=== PATIENT | female | born 1980 | race Caucasian/White ===

== ENCOUNTER 2017-06-27 12:56 | Emergency (ER) | payer OTHER ==
[~2017-06-27] VITALS: Ht 167.6 cm; Wt 68.0 kg
--- NOTE | 2017-06-27 13:15 | ED PSYCHIATRIC COMPLAINT ---
History of Present Illness General Chief Complaint: Psychiatric Related Complaint Stated Complaint: SIB HIGHWATCH FOR EVAL Source: patient, family Exam Limitations: no limitations Vital Signs & Intake/Output Vital Signs & Intake/Output Vital Signs Date Time Temp Pulse Resp B/P B/P Pulse O2 O2 Flow FiO2 Mean Ox Delivery Rate 06/27 1445 98.0 76 17 108/66 100 Room Air 06/27 1311 97.7 80 16 114/71 98 Room Air Allergies Coded Allergies: No Known Allergies (06/27/17) Reconcile Medications Aripiprazole (Abilify) 15 MG TABLET 1 TAB PO DAILY MENTAL HEALTH (Reported) Bupropion HCl (Wellbutrin XL) 150 MG TAB.ER.24H 1 TAB PO DAILY MENTAL HEALTH (Reported) Escitalopram Oxalate 20 MG TABLET 1 TAB PO DAILY MENTAL HEALTH (Reported) Triage Note: PT WENT TO [facility] AND THEY SENT HER HERE FOR MEDICAL CLEARANCE BECAUSE SHE HAS SUPERFICIAL LACERATIONS TO HER LEFT WRIST. PT DENIES SI/HI BUT STATES SHE HAS HX OF CUTTING AND ONLY DID THIS BECAUSE SHE WAS DRUNK. PT STATES HER LAST DRINK WAS LAST EVENING. PT ADMITS TO DRINKING ONE PINT OF VODKA MIXED WITH WINE EVERY OTHER DAY. PT ALSO AMDITS TO USING COCAINE AND MARIJUANNA. COCAINE ON THE AND MARIJUANNA LAST EVELIN. Triage Nurses Notes Reviewed? yes : No Patient currently breastfeeds: No HPI: Patient went to [facility] for alcohol rehabilitation today. Patient states that she drinks heavily roughly every other day. Patient states that she has gone up to 3 days without drinking in the past. During her intake it is also found that the patient has been cutting recently. Patient was admitted [facility] over the summer for depression. Patient states that she cuts not in a suicide attempt but it just an effort to feel good and she always does when she is drinking. Past History Travel History Traveled to [place] past 21 day No Medical History Any Pertinent Medical History? see below for history Psychiatric: anxiety, depression Surgical History Surgical History: non-contributory Psychosocial History What is your primary language French Tobacco Use: Current Daily Use Daily Tobacco Use Amount/Type: => 5 Cigarettes daily ETOH Use: alcoholic Illicit Drug Use: cocaine, marijuana Family History Hx Contributory? No Review of Systems Review of Systems Constitutional: Reports: no symptoms. EENTM: Reports: no symptoms. Respiratory: Reports: no symptoms. Cardiovascular: Reports: no symptoms. GI: Reports: no symptoms. Genitourinary: Reports: no symptoms. Musculoskeletal: Reports: no symptoms. Skin: Reports: no symptoms. Neurological/Psychological: Reports: see HPI, depressed. Hematologic/Endocrine: Reports: no symptoms. Immunologic/Allergic: Reports: no symptoms. All Other Systems: Reviewed and Negative Physical Exam Physical Exam General Appearance: well developed/nourished, mild distress Head: atraumatic Eyes: Bilateral: PERRL, EOMI. Ears, Nose, Throat: normal pharynx, normal ENT inspection, hearing grossly normal Neck: normal inspection, supple Respiratory: normal breath sounds Cardiovascular: regular rate/rhythm Gastrointestinal: soft, non-tender Extremities: CUTS TO LUE, NOTHING TO SUTURE Neurological/Psychiatric: no motor/sensory deficits, awake, alert, calm, oriented x 3 Appearance/Memory/Insight: appropriate appearance, appropriate insight Behavoir/Eye Contact/Speech: cooperative, normal speech, good eye contact Thoughts/Hallucinations: normal thought pattern, no apparent hallucination Skin: normal color, warm/dry SAD PERSONS Done? CRISIS CONSULT OBTAINED Progress Differential Diagnosis: drug intoxication, drug overdose, drug withdrawal, electrolyte abnormality Plan of Care: Orders Procedure Date/time Status Regular Diet 06/27 D Active CIWA 06/27 1315 Active URINE DRUG SCREEN FOR ER ONLY 06/27 1315 Complete URINALYSIS 06/27 1315 Complete HUMAN BETA HCG SCREEN 06/27 1315 Complete ETHANOL 06/27 1315 Complete COMPREHENSIVE METABOLIC PANEL 06/27 1315 Complete CBC WITHOUT DIFFERENTIAL 06/27 1315 Complete ED CRISIS PSYCH CONSULT 06/27 1315 Active Current Medications Sig/Lorrie Start time Last Medication Dose Stop Time Status Admin Aripiprazole 15 MG DAILY 06/27 1339 UNVr 06/27 (Abilify) 1408 Bupropion HCl 150 MG DAILY 06/27 1339 UNVr 06/27 (Wellbutrin XL) 1408 Escitalopram Oxalate 20 MG DAILY 06/27 1339 UNVr 06/27 (Lexapro) 1408 Laboratory Tests 06/27/17 1540: Urine Opiates Screen < 100.00, Methadone Screen 47, Barbiturate Screen < 60, Ur Phencyclidine Scrn < 6.00, Amphetamines Screen 183, U Benzodiazepines Scrn < 85, Urine Cocaine Screen 157, Urine Cannabis Screen > 80.00 H, Urine Color YEL, Urine Clarity CLEAR, Urine pH 7.0, Ur Specific [place] 1.020, Urine Protein NEG, Urine Ketones NEG, Urine Nitrite NEG, Urine Bilirubin NEG, Urine Urobilinogen 0.2, Ur Leukocyte Esterase NEG, Ur Microscopic EXAM NOT REQUIRED, Urine Hemoglobin NEG, Urine Glucose NEG 06/27/17 1342: Anion Gap 11, Estimated GFR > 60, BUN/Creatinine Ratio 25.7 H, Glucose 108 H, Calcium 10.1, Total Bilirubin 0.6, AST 21, ALT 36, Alkaline Phosphatase 63, Total Protein 7.3, Albumin 4.4, Globulin 2.9, Albumin/Globulin Ratio 1.5, Total Beta HCG NEGATIVE, CBC w Diff NO MAN DIFF REQ, RBC 4.72, MCV 90.4, MCH 31.6 H, RDW 12.6, MPV 7.4, Gran % 65.5, Lymphocytes % 26.3, Monocytes % 6.3, Eosinophils % 1.1, Basophils % 0.8, Absolute Granulocytes 4.8, Absolute Lymphocytes 1.9, Absolute Monocytes 0.5, Absolute Eosinophils 0.1, Absolute Basophils 0.1, PUBS MCHC 35.0, Serum Alcohol < 10.0 Hand-Off Endorsed To: Kuldeep Quintana MD Endorsed Time: 1899 Pending: consult, other (RE-EVAL) Comments: Patient has been seen and evaluated by psychiatry and she is cleared to return to [facility]. Departure Departure Disposition: HOME OR SELF CARE Condition: Stable Clinical Impression Primary Impression: Alcohol dependency Secondary Impressions: Deliberate self-cutting Additional Instructions: GO STRAIGHT TO [facility] RETURN FOR ANY CONCERNS Departure Forms: Customer Survey General Discharge Information
[2017-06-27 13:48] LABS: ABSOLUTE BASOPHIL COUNT 0.1 /CUMM (0.0-0.2); ABSOLUTE EOSINOPHIL COUNT 0.1 /CUMM (0.0-0.7); ABSOLUTE GRANULOCYTE CT 4.8 /CUMM (1.4-6.5); ABSOLUTE LYMPH COUNT 1.9 /CUMM (1.2-3.4); ABSOLUTE MONOCYTE COUNT 0.5 /CUMM (0.10-0.60); BASOPHIL % 0.8 % (0.0-2.0); EOSINOPHIL % 1.1 % (0-5); GRANULOCYTE % 65.5 % (42.2-75.2); HEMATOCRIT 42.7 % (37-47); MEAN CORPUSCULAR HGB 31.6 PG (27.0-31.0); MEAN CORPUSCULAR VOLUME 90.4 FL (81.0-99.0); MEAN PLATELET VOLUME 7.4 FL (7.4-10.4); PLATELET COUNT 254 /CUMM (130-400); RBC DISTRIBUTION WIDTH 12.6 % (11.5-14.5); RED BLOOD CELL CT 4.72 /CUMM (4.20-5.40); WHITE BLOOD CELL COUNT 7.3 /CUMM (4.8-10.8)
[2017-06-27] MEDS ORDERED: WELLBUTRIN XL150 M2 PO (14:49)
[2017-06-27] MEDS ORDERED: ABILIFY15 M1 PO (14:50)
[2017-06-27] MEDS ORDERED: ESCITALOPRAM OX20 MG PO (14:51)
--- NOTE | 2017-06-27 17:41 | ED PSYCH CRISIS CONSULTATION ---
Crisis Consult Basic Assessment Date of Consult: 06/27/17 Chief Complaint: Psychiatric Related Complaint Allergies - Coded Allergies: No Known Allergies (06/27/17) Current Medications - Scheduled Medications Aripiprazole (Abilify) 15 MG TABLET 1 TAB PO DAILY MENTAL HEALTH (Reported) Entered as Reported by Kenneth Mathews on 06/27/17 1450 Bupropion HCl (Wellbutrin XL) 150 MG TAB.ER.24H 1 TAB PO DAILY MENTAL HEALTH (Reported) Entered as Reported by Kenneth Mathews on 06/27/17 1449 Escitalopram Oxalate 20 MG TABLET 1 TAB PO DAILY MENTAL HEALTH (Reported) Entered as Reported by Kenneth Mathews on 06/27/17 1451 Past History Past Medical History Psychiatric: anxiety, depression Past Surgical History Surgical History: non-contributory Departure Disposition Referrals Patient Has No Primary Care Dr (PCP/Family)
[2017-06-27 17:45] VITALS: BP 112/66
--- NOTE | 2017-06-27 19:28 | ED PSYCH CRISIS CONSULTATION ---
Crisis Consult Basic Assessment Date of Consult: 06/27/17 Responsible Person/Accompanied By: Brought in by / from the [facility] Insurance Authorization: Insurance #1: Insurance name: KHUSHI Phone number: Policy number: [id number] Group number: Authorization number: ED Provider: Patient's ED Provider: Vance LEACH,Octavio Vasquez Primary Care Physician: Patient's PCP: Patient Has No Primary Care Dr PCP's Phone Number: Current Psychiatrist: Denies Chief Complaint: Psychiatric Related Complaint Patient's Quote: "I was at [facility], and they wanted to confirm I didn't want to hurt mysel Present Illness: Pt is a 37 year old female, she was in the middle of the admission process at [facility] today, when she told them she cut herself last night, she has visible cuts on her left arm, superficial not requiring medical attention. Pt denies si /hi/ah/vh. Pt states she was drinking last night, and cut herself due to increase "in pressure, and somehow the cutting releases the pressure, but I do not want to hurt myself". Pt states she was at [facility], for herself, to finally get control of her drinking and drug problem. Pt states she has been binge drinking on and off since she was 15 years old. She also abuses cocaine and marajuana. She has been using cocaine at a "heavy use" for the past 6 months and she reports it's getting out of control, she reports always smoking marajuana since she was 15 years old. She has never gone to rehab and has not engaged in substance abuse treatment, she is rpescribed medications put can not recall prescriber. Her only inpatient hopsititalization was in January 2017 after "I was crashing from cocaine, and began to have suicidal thoughts, I was admitted for 5 days then began using almost immediately after, I didn't follow up with anything". Pt is but has been living in an apartment with her coke dealer in [place], she also reports seperating from her , once the drug use got out of control. She is a [facility]. She indicates she wants to get help, and wants to go to [facility] for admission, pt denies suicidal ideation. Pt has denies previous attempts. Patient's Address: [address] [place] [address] Other Phone Number: Who Do You Live With? Other (see notes) Family/Informants Interviewed: Spoke to Florentino her he states he will bring her to [facility] if she is cleared for discharge, he does not feel she is a danger to herself. Allergies - Coded Allergies: No Known Allergies (06/27/17) Current Medications - Scheduled Medications Aripiprazole (Abilify) 15 MG TABLET 1 TAB PO DAILY MENTAL HEALTH (Reported) Entered as Reported by Kenneth Mathews on 06/27/17 1450 Bupropion HCl (Wellbutrin XL) 150 MG TAB.ER.24H 1 TAB PO DAILY MENTAL HEALTH (Reported) Entered as Reported by Kenneth Mathews on 06/27/17 1449 Escitalopram Oxalate 20 MG TABLET 1 TAB PO DAILY MENTAL HEALTH (Reported) Entered as Reported by Kenneth Mathews on 06/27/17 1451 Laboratory Results: Laboratory Tests 06/27/17 1540: Urine Opiates Screen < 100.00, Methadone Screen 47, Barbiturate Screen < 60, Ur Phencyclidine Scrn < 6.00, Amphetamines Screen 183, U Benzodiazepines Scrn < 85, Urine Cocaine Screen 157, Urine Cannabis Screen > 80.00 H, Urine Color YEL, Urine Clarity CLEAR, Urine pH 7.0, Ur Specific [place] 1.020, Urine Protein NEG, Urine Ketones NEG, Urine Nitrite NEG, Urine Bilirubin NEG, Urine Urobilinogen 0.2, Ur Leukocyte Esterase NEG, Ur Microscopic EXAM NOT REQUIRED, Urine Hemoglobin NEG, Urine Glucose NEG 06/27/17 1342: Anion Gap 11, Estimated GFR > 60, BUN/Creatinine Ratio 25.7 H, Glucose 108 H, Calcium 10.1, Total Bilirubin 0.6, AST 21, ALT 36, Alkaline Phosphatase 63, Total Protein 7.3, Albumin 4.4, Globulin 2.9, Albumin/Globulin Ratio 1.5, Total Beta HCG NEGATIVE, CBC w Diff NO MAN DIFF REQ, RBC 4.72, MCV 90.4, MCH 31.6 H, RDW 12.6, MPV 7.4, Gran % 65.5, Lymphocytes % 26.3, Monocytes % 6.3, Eosinophils % 1.1, Basophils % 0.8, Absolute Granulocytes 4.8, Absolute Lymphocytes 1.9, Absolute Monocytes 0.5, Absolute Eosinophils 0.1, Absolute Basophils 0.1, PUBS MCHC 35.0, Serum Alcohol < 10.0 Past History Past Medical History Psychiatric: anxiety, depression Past Surgical History Surgical History: non-contributory Psychosocial History Strengths/Capabilities: Attempting to get into [facility] for rehab. Psychiatric Treatment History Psych Treatment Psychiatric Treatment Yes Inpatient Treatment Yes Outpatient Treatment Yes Location of Treatment [facility] Reason for Treatment Depression/anxiety Dates of Treatment January 2017 Response to Treatment continued to use drugs Diagnosis by History: "depression/anxiety" Substance Use/Abuse History Drug Use/Abuse 1 Substances Used/Abused Yes Substance Used/Abused Alcohol First Use 15 Last Used last night How much used/taken pint How often binge drinks regularly For how long on and off for 14 years Route of use oral Drug Use/Abuse 2 Substances Used/Abused Yes Substance Used/Abused Cocaine First Use 19 Last Used 37 year old How much used/taken varies/ heavy use over 6 months How often varies/heavy use over 6 months For how long tried it at 19, heavy use over 6 months Route of use nasal Drug Use/Abuse 3 Substances Used/Abused Yes Substance Used/Abused Marijuana First Use 15 Last Used today How much used/taken 1/8 every few days How often daily For how long on and off since 15 years old Route of use inhale Substance Abuse Treatment Substance Abuse Treatment Past Substance Abuse [place] No Comments: Pt attending rehab admission appointment at [facility] today Current Mental Status Mental Status Orientation: Person, Place, Situation Affect: Flat, Variable Speech: Normal Neuro-vegetative: Concentration Poor, Energy Increased, Helpless, Sleep Disturbance Appearance Appearance- Dress/Hygiene: WNL Behaviors Thought Process: WNL Thought Content: WNL Memory: WNL Insight: Fair SI/HI Risk Assessment Past Suicidal Ideation/Attempts Yes Current Suicidal Ideation/Att No Past Homicidal Ideation/Att: No Current Homicidal Ideation/Attempts No Degree of Intent: None, Self Destructive/No Risk Factors: high anxiety/distress, substance abuse, lives alone Lethality Ratin (mild) PTSD Checklist PTSD Done? patient declined ED Management Sitter: Yes Restraints: No DSM5/PS Stressors/Medical Prob Diagnosis' (DSM 5, Stressors, Medical): Unspecified Anxiety D/O F41.9 Alcohol Use D/O Severe F10.20 Cocaine Use D/O Severe F14.20 Cannabis Use D/O Moderate F12.20 Current GAF: 36 Departure Disposition Psych Medical Clearance Date: 06/27/17 Medically Cleared at: 1630 Time Started: 1630 Time Ended: 1730 Psychiatrist Consulted: Herminio Medellin MD Date Disposition Established: 06/27/17 Time Disposition Established: 1729 Plan for Disposition - Modality: [facility] Facility: [facility] Follow-up Appt Date: 06/27/17 Follow-Up Appt Time: 1830 Contact: [facility] Rationale for Disposition: Consulted with Dr. Medellin, and Dr. Woodard pt to be discharged to her so he can return her to complete the admission process at [facility]. Pt denying si and denies si attempt. Referrals Patient Has No Primary Care Dr (PCP/Family)
== END 2017-06-27 17:46 ==
LOC: ERH 12:56
PROVIDERS: Emergency Medicine
DX: F10.20 Alcohol dependence, uncomplicated (principal); Z91.5 Personal history of self-harm
CPT/HCPCS: 80307; 81003; G0480